=== PATIENT | male | born 1970 | race Caucasian/White ===

== ENCOUNTER 2021-02-16 19:56 | Emergency (ER) | payer OTHER ==
[~2021-02-16 19:56] MED LIST: ACETAMINOPHEN500 M1 PO; ALLEGRA ALLERG180 MG PO; CLARITIN10 MG PO; COLACE100 MG PO; MOTRIN600 MG PO; OXY-IR 5MG5 MG PO; PRINIVIL10 MG PO; SYNTHROID50 MCG PO; TAMSULOSIN HCL0.4 MG PO
== END 2021-02-16 22:25 | disposition home or self-care (01) ==
LOC: FER 19:56
DX: S81.012A Laceration without foreign body, left knee, initial encounter (principal); Z23 Encounter for immunization; W29.3XXA Contact with powered garden and outdoor hand tools and machinery, initial encounter; Y92.009 Unspecified place in unspecified non-institutional (private) residence as the place of occurrence of the external cause; W19.XXXA Unspecified fall, initial encounter
CPT/HCPCS: 73560; 90471; 90715; 99283